=== PATIENT | female | born 1975 | race Caucasian/White ===

== ENCOUNTER → 2017-06-03 | Outpatient (CLI) | payer BC | LOC: RAD 01:25 | DX: Z12.31 Encounter for screening mammogram for malignant neoplasm of breast (principal) ==

== ENCOUNTER → 2017-06-10 | Outpatient (CLI) | payer BC | LOC: RAD 01:16 | DX: N63.10 Unspecified lump in the right breast, unspecified quadrant (principal); N63.20 Unspecified lump in the left breast, unspecified quadrant ==

== ENCOUNTER → 2017-12-03 | Outpatient (CLI) | payer BC | LOC: ULTRA 08:48 | DX: N60.01 Solitary cyst of right breast (principal); N60.02 Solitary cyst of left breast ==

== ENCOUNTER → 2018-05-26 | Outpatient (CLI) | payer BC | LOC: RAD 14:20 | DX: Z12.31 Encounter for screening mammogram for malignant neoplasm of breast (principal) ==

== ENCOUNTER → 2018-06-02 | Outpatient (CLI) | payer BC | LOC: ULTRA 13:40 | DX: N63.12 Unspecified lump in the right breast, upper inner quadrant (principal) ==

== ENCOUNTER → 2021-01-09 | Outpatient (CLI) | payer OTHER | LOC: RAD 10:42 | PROVIDERS: ATTEND Nurse Practitioner Obstetrics & Gynecology | DX: Z12.31 Encounter for screening mammogram for malignant neoplasm of breast (principal); N60.82 Other benign mammary dysplasias of left breast; N60.81 Other benign mammary dysplasias of right breast ==

== ENCOUNTER → 2021-01-14 | Outpatient (CLI) | payer OTHER | LOC: ULTRA 08:28 → BC 14:04 | PROVIDERS: ATTEND Nurse Practitioner Obstetrics & Gynecology | DX: N60.02 Solitary cyst of left breast (principal); N60.01 Solitary cyst of right breast ==